=== PATIENT | female | born 1965 | race African-American/Black ===

== ENCOUNTER 2022-05-16 13:41 | Emergency (ER) | payer OTHER, SELFPAY ==
[2022-05-16] MEDS ORDERED: Cyclobenzaprine 10 MG TAB ONE (14:42)
== END 2022-05-16 14:40 | disposition home or self-care (01) ==
LOC: CSHERS 13:41
DX: M54.42 Lumbago with sciatica, left side (principal); M62.830 Muscle spasm of back; E11.9 Type 2 diabetes mellitus without complications; B20 Human immunodeficiency virus [HIV] disease; I10 Essential (primary) hypertension
CPT/HCPCS: 99282

== ENCOUNTER 2025-07-12 09:49 | Outpatient (CLI) | payer OTHER | END 2025-07-12 09:50 | disposition home or self-care (01) | LOC: CSHMAMMO 09:49 | PROVIDERS: ATTEND Family Medicine | DX: N64.89 Other specified disorders of breast (principal) | CPT/HCPCS: G0279 ==